=== PATIENT | female | born 2000 | race Caucasian/White ===

== ENCOUNTER 2021-09-02 09:35 | Emergency (ER) | payer BC ==
[~2021-09-02] VITALS: Ht 160 cm; Wt 50.0 kg
[2021-09-02 09:48] VITALS: BP 116/69
[2021-09-02] MEDS ORDERED: ALBU8HFA PO (11:56)
[2021-09-02] MEDS ORDERED: ALB0.5UD IH (11:56)
== END 2021-09-02 12:06 | disposition home or self-care (01) ==
LOC: ER 09:35
DX: J45.909 Unspecified asthma, uncomplicated (principal); Z88.8 Allergy status to other drugs, medicaments and biological substances; Z79.899 Other long term (current) drug therapy
CPT/HCPCS: 99283